=== PATIENT | male | born 1975 | race Caucasian/White ===

== ENCOUNTER 2023-12-15 09:45 | Emergency (ER) | payer BC, SELFPAY ==
[2023-12-15 09:51] VITALS: BP 152/101; BMI 35.0
[2023-12-15 10:08] VITALS: BP 147/96
[2023-12-15 10:17] LABS: % Basophils 0.5 % (0-2); % Eosinophils 1.4 % (0-6); % Immature Granulocytes 0.6 % (0-0.5); % Lymphocytes 16.5 % (20.5-51.1); % Monocytes 5.4 % (1.7-9.3); % Neutrophils 75.6 % (42.2-75.2); Absolute Basophils 0.1 10^3/uL (0-0.2); Absolute Eosinophils 0.2 10^3/uL (0-0.7); Absolute Immature Granulocytes 0.1 10^3/uL (0-0.05); Absolute Lymphocytes 1.9 10^3/uL (1.2-3.4); Absolute Monocytes 0.6 10^3/uL (0.1-0.6); Absolute Neutrophils 8.9 10^3/uL (1.4-6.5); Hematocrit 43.9 % (39.0-52.0); Hemoglobin 15.6 g/dL (13.0-18.0); Mean Corp Hgb Conc. 35.5 g/dL (33.0-37.0); Mean Corpuscular Hgb 29.4 pg (27.0-31.0); Mean Corpuscular Volume 82.7 fL (80.0-94.0); Mean Platelet Volume 9.2 fL (7.4-10.4); Nucleated Red Blood Cells % 0 % (-); Platelet Count 258 10^3/uL (130-400); Red Blood Cell Count 5.31 10^6/uL (4.70-6.10); Red Cell Dist. Width 13.2 % (11.5-14.5); White Blood Cell Count 11.7 10^3/uL (4.8-10.8)
--- NOTE | 2023-12-15 10:21 | EDRN ---
Dr. Skinner currently at the pts bedside speaking with the pt
--- NOTE | 2023-12-15 10:29 | ED.GENMED ---
History of Present Illness
General
Chief Complaint: Abdominal Pain
Source: patient
Exam Limitations: none
Time Seen by Provider: 12/15/23 10:14
Travel History
Have you had any contact with someone who has COVID-19?: No
Do you have any symptoms of coronavirus? Fever > 100 degrees, chills, cough, shortness of breath, sore throat, loss of taste or smell, muscle aches, or headache?: No
History of Present Illness
History of Present Illness:
48-year-old male who presents left lower quad abdominal pain started middle the night. He woke up feeling he had to urinate but had discomfort that was worse than you would think for a full bladder. No symptoms in his left lower quadrant. He has
a long history of diverticulitis. Patient denies fevers. Also reports a history of umbilical hernia and has been seen by surgery in the past. He has had admissions in the past for diverticulitis. Denies melena or hematochezia.
Past History
Past History
ED Past Medical History: HTN and Other (Diverticulosis diverticulitis )
ED Past Surgical History: None
Social History
Tobacco: Non-smoker
Employment: Employed
Phy Exam
Physical Exam
Physical Exam:
CONSTITUTIONAL Patient alert and oriented to person, place and time. Well-appearing. Vital signs reviewed.
HEAD atraumatic, normocephalic.
EYES eyelids normal to inspection, Pupils equally round and reactive to light, Extraocular muscles intact, Conjunctiva normal, Sclera normal.
NECK normal range of motion, Trachea midline, no jugular venous distention.
RESPIRATORY CHEST No respiratory distress noted, Chest expansion equal, Bilateral breath sounds clear.
CARDIOVASCULAR regular rate and rhythm, Heart sounds normal.
ABDOMEN moderate left lower quadrant tenderness, Bowel sounds normal. No distention. Umbilical hernia noted. No redness
BACK normal inspection, no obvious deformities
UPPER EXTREMITY range of motion normal, Motor strength normal, no cyanosis, no edema.
LOWER EXTREMITY range of motion normal, Motor strength normal, no cyanosis, no edema.
NEURO Speech normal, No focal motor deficits, [place] coma scale 15, Memory normal, Cranial Nerves intact to screening exam.
SKIN skin warm, dry, and normal in color.
Course
Orders/Labs/Results
Orders:
Orders
12/15/23 10:12
Complete Blood Count/With Diff Urgent
Comprehensive Metabolic Panel Urgent
Lipase Urgent
12/15/23 11:03
Urinalysis Reflex To Culture Urgent
Date Specimen was Collected: 12/15/23
Time Specimen was Collected: 10:15
12/15/23 11:12
Ketorolac [Toradol] 15 mg IV NOW STA
12/15/23 11:29
Amoxicillin 875 mg/Clav 125 mg [Augmentin 875 mg/125 mg] 1 tablet PO NOW STA
Abnormal Lab Results
12/15/23
10:12
WBC 11.7 H 10^3/uL
(4.8-10.8)
Abs Immat Gran (auto) 0.1 H 10^3/uL
(0-0.05)
Absolute Neuts (auto) 8.9 H 10^3/uL
(1.4-6.5)
Immature Gran % 0.6 H %
(0-0.5)
Neutrophils % 75.6 H %
(42.2-75.2)
Lymphocytes % 16.5 L %
(20.5-51.1)
Glucose 102 H mg/dl
(70-99)
ALT 63 H U/L
(0-50)
12/15/23 10:12
12/15/23 10:12
Vital Signs
Initial and Last Documented VS:
Initial Vital Signs
Temp Pulse Resp BP Pulse Ox
99.1 F 73 16 152/101 96
12/15/23 09:51 12/15/23 09:51 12/15/23 09:51 12/15/23 09:51 12/15/23 09:51
Last Documented Vital Signs
Temp Pulse Resp BP Pulse Ox
99.1 F 73 16 147/96 98
12/15/23 09:51 12/15/23 09:51 12/15/23 09:51 12/15/23 10:08 12/15/23 10:13
MDM/Problems Addressed
MDM/Problems Addressed:
Abdominal pain, diverticulitis
*Pulse Oximetry
Patient hypoxic: no
*Critical Care Note
Total Time (30-74mins, 75-104mins- exclusive of procedures): Not Applicable
Data Reviewed
Review of Other/Old Records Reveals: Operative Reports (Colonoscopy reviewed from November 2017)
Source: patient
Further Testing Considered But Not Given:
Considered CT but patient has long history of it and symptoms started this morning. Okay for just antibiotic
Patient Management
Escalation/DeEscalation of care consider admission/obs:
No indication for imaging at this time as my suspicion for perforation or abscess is very low. Patient is reasonable for outpatient management. Recommended close follow
ED Attending Note
-
Portions of this chart may have been created with voice recognition software.� Occasional wrong word or��sound alike� substitutions may have occurred due to the inherent limitations of voice recognition software.
Discharge Plan
Departure
Patient Disposition: Home (Routine Discharge)
Date of Disposition: 12/15/23
Time of Disposition: 11:31
Patient with high blood pressure during this ER visit?: Yes
Discharge Problem:
Acute diverticulitis
Instructions: Diverticulitis (DC)
Prescriptions:
New
amoxicillin-pot clavulanate 875-125 mg tablet
1 tab PO BID Qty: 20 0RF
No Action
amlodipine-benazepril 5-10 mg Capsule
1 cap PO DAILY
Referrals:
Keven Chandra DO [Family Provider] -
Activity Restrictions/Additional Instructions:
Please see your doctor in follow-up in the next 3 to 5 days. Return immediately for worsening symptoms, fevers, vomiting or any other concerns.
Interventions
Interventions:
*Risk Screen - Suicide Last Done: 12/15/23 09:51
*General Assessment Last Done: 12/15/23 09:51
*Neglect/Abuse Screening Last Done: 12/15/23 09:51
ED- Fall Risk Assessment Last Done: 12/15/23 10:13
*ED COVID-19 Vaccine History Last Done: 12/15/23 09:51
KZ-[id number] Assessment Last Done: 12/15/23 10:13
[2023-12-15 10:36] LABS: ALT (SGPT) 63 U/L (0-50); AST (SGOT) 39 U/L (17-59); Albumin 4.8 g/dl (3.5-5.0); Alkaline Phosphatase 64 U/L (38-126); Blood Urea Nitrogen 15 mg/dl (9-20); Calcium 9.4 mg/dl (8.4-10.2); Carbon Dioxide 26 mmol/L (22-30); Chloride 106 mmol/L (98-107); Estimated Creatinine Clearance > 125 ml/min; Glucose 102 mg/dl (70-99); Lipase 137 U/L (23-300); Potassium 4.2 mmol/L (3.5-5.1); Sodium 137 mmol/L (135-145); Total Bilirubin 0.9 mg/dl (0.2-1.3); eGFR > 60.00
--- NOTE | 2023-12-15 11:11 | EDRN ---
the pt is requesting medication for pain, this RN notified Dr. Skinner
[2023-12-15] MEDS: TORADOL 15 MG IV (11:13)
[2023-12-15 11:17] LABS: Urine Albumin Negative (Neg - Trace); Urine Bilirubin Negative (Negative); Urine Character Clear (Clear); Urine Color Yellow; Urine Glucose Negative (Negative); Urine Ketone Negative (Negative); Urine Leukocyte Negative (Negative); Urine Nitrite Negative (Negative); Urine Occult Blood Negative (Negative); Urine Urobilinogen Negative (Neg - 1+)
[2023-12-15] MEDS: AUGMENTIN 875 MG/125 MG 1 TABLET PO (11:34)
== END 2023-12-15 11:36 | disposition home or self-care (01) ==
LOC: EMR 09:45
PROVIDERS: EMERGENCY PHYSICIAN Emergency Medicine; FAMILY PHYSICIAN Family Medicine
DX: K57.92 Diverticulitis of intestine, part unspecified, without perforation or abscess without bleeding (principal); K42.9 Umbilical hernia without obstruction or gangrene; I10 Essential (primary) hypertension
CPT/HCPCS: 99284; 96374; 80053; 81003; 83690; 85025